=== PATIENT | male | born 1950 | race Caucasian/White ===

== ENCOUNTER 2018-11-01 18:30 | Emergency (ER) | payer MEDICARE, BC ==
[2018-11-01 19:20] LABS: CHLORIDE,CL 101 mmol/L (98-107); SODIUM,NA 138 mmol/L (136-145)
--- NOTE | 2018-11-01 19:31 | EDM.PDOC ---
ED HPI GENERAL MEDICAL PROBLEM - General Chief Complaint: Laceration Stated Complaint: Trauma, Facial laceration Time Seen by Provider: 11/01/18 18:45 Source of Information: Reports: Patient, Family - History of Present Illness INITIAL COMMENTS - FREE TEXT/NARRATIVE: Patient brought in by after getting kicked in the left eye area by a horse that he was trying to brand. Laceration near inner left eye, swollen eyelid. Unable to see well out of left eye. He denies other injuries. No nasal pain/jaw pain/neck pain. Able to open and close jaw. Denies chest/back/ abdominal/limb pain. No focal neuro weakness/numbness. ROS otherwise negative. - Related Data Allergies Allergy/AdvReac Type Severity Reaction Status Date / Time venom-honey bee Allergy Anaphylactic Verified 01/02/14 16:13 Shock Home Meds: Home Meds Ca Cmb No.1/Vit D3/B-6/FA/B12 [Vitamin D3 1,000 Unit] 2,000 units PO DAILY 01/16 [History] Cetirizine [ZyrTEC] 1 tab PO DAILY 01/16/14 [History] Clotrimazole/Betamethasone Dip [Lotrisone Cream] 1 applic TOP DAILY 01/16/14 [ History] Multivitamin with Minerals [Multiple Vitamin] 1 tab PO DAILY 01/16/14 [History] Omeprazole [priLOSEC OTC] 1 - 2 cap PO DAILY PRN 01/16/14 [History] Sildenafil [Viagra] 1 tab PO DAILY PRN 01/16/14 [History] Testosterone [Androgel] 50 mg TOP DAILY 01/16/14 [History] Triamcinolone Acetonide [Kenalog 0.1% Crm] 1 applic TOP BID PRN 01/16/14 [ History] Cranberry Conc/Ascorbic Acid [Cranberry 12,600 mg Softgel] 1 cap PO DAILY [History] Raspberry Ketone [Raspberry Ketones] 1 tab PO DAILY 01/17/14 [History] Venlafaxine HCl [Venlafaxine ER] 1 cap PO DAILY 01/17/14 [History] Past Medical History HEENT History: Reports: Allergic Rhinitis Gastrointestinal History: Reports: GERD Psychiatric History: Reports: Depression Social & Family History - Tobacco Use Smoking Status *Q: Never Smoker - Caffeine Use Caffeine Use: Reports: Coffee, Soda - Alcohol Use Alcohol Use History: Yes Alcohol Use in Last Twelve Months: No Alcohol Use Comment: Recovering alcoholic ED ROS GENERAL - Review of Systems Review Of Systems: See Below Constitutional: Reports: No Symptoms HEENT: Reports: Eye Pain (left), Vision Change (left). Denies: Ear Pain, Nosebleed, Nose Pain Respiratory: Reports: No Symptoms. Denies: Shortness of Breath, Pleuritic Chest Pain Cardiovascular: Reports: No Symptoms. Denies: Chest Pain GI/Abdominal: Reports: No Symptoms : Reports: No Symptoms Musculoskeletal: Reports: No Symptoms. Denies: Neck Pain, Shoulder Pain, Arm Pain, Back Pain, Hand Pain, Leg Pain, Foot Pain, Joint Pain, Joint Swelling Skin: Reports: Wound (near left eye) Neurological: Denies: Confusion, Dizziness, Headache, Paresthesia, Seizure, Syncope, Tingling, Tremors, Trouble Speaking, Difficulty Walking, Weakness, Change in Speech, Gait Disturbance Psychiatric: Reports: No Symptoms Hematologic/Lymphatic: Reports: No Symptoms ED EXAM, SKIN/RASH Exam: See Below Exam Limited By: No Limitations General Appearance: Alert, WD/WN, Mild Distress Eye Exam: Left Eye: Abnormal Pupil, Conjunctival Injection, Periorbital Changes , Proptosis Ears: Normal External Exam, Normal Canal Nose: Nasal Swelling (left side of nose). No: Nasal Tenderness, Nasal Drainage Throat/Mouth: Normal Lips, Normal Teeth, Normal Voice, No Airway Compromise Head: Facial Swelling (around left eye) Neck: Normal Inspection, Supple, Non-Tender, Full Range of Motion Respiratory/Chest: No Respiratory Distress, Lungs Clear, Normal Breath Sounds, No Accessory Muscle Use, Chest Non-Tender Cardiovascular: Regular Rate, Rhythm, No Edema, No Murmur GI/Abdominal: Soft, Non-Tender (Male) Exam: Deferred Rectal (Males) Exam: Deferred Back Exam: No: Muscle Spasm Extremities: Normal Inspection, Non-Tender, Normal Capillary Refill Neurological: Alert, Oriented, Normal Cognition, No Motor/Sensory Deficits Psychiatric: Normal Affect, Normal Mood Skin: Warm, Dry, Wound/Incision (inner corner of left eye has laceration) Course - Orders/Labs/Meds Orders: Active Orders 24 hr Category Date Time Status Head wo Cont [CT] Routine Exams 11/01/18 19:06 Taken Max Facial Sinus wo Cont [CT] Routine Exams 11/01/18 19:07 Taken Sodium Chloride 0.9% [Normal Saline] 1,000 ml Med 11/01/18 19:21 Ordered IV .BOLUS Medication Orders Sodium Chloride (Normal Saline) 1,000 mls @ 250 mls/hr IV .BOLUS ONE Stop: 11/01/18 23:20 Labs: Laboratory Tests 11/01/18 11/01/18 Range/Units 18:50 18:50 WBC 5.8 (4.0-10.2) K/uL RBC 4.58 (4.33-5.41) M/uL Hgb 14.6 (13.1-16.8) g/dL Hct 41.1 (39.0-49.0) % MCV 89.7 (84.0-98.0) fL MCH 31.9 (28.2-33.3) pg MCHC 35.5 (31.7-36.0) g/dL RDW 12.5 (11.2-14.1) % Plt Count 166 (150-350) K/uL Neut % (Auto) 57.5 (45.0-80.0) % Lymph % (Auto) 27.6 (10.0-50.0) % [place] % (Auto) 9.8 (2.0-14.0) % Eos % (Auto) 4.8 (0.0-5.0) % Baso % (Auto) 0.3 (0.0-2.0) % Neut # (Auto) 3.33 (1.40-7.00) K/uL Lymph # (Auto) 1.60 (0.50-3.50) K/uL [place] # (Auto) 0.57 (0.00-1.00) K/uL Eos # (Auto) 0.28 (0.00-0.50) K/uL Baso # (Auto) 0.02 (0.00-0.20) K/uL Sodium 138 (136-145) mmol/L Potassium 3.5 (3.5-5.1) mmol/L Chloride 101 (98-107) mmol/L Carbon Dioxide 24.7 (21.0-32.0) mmol/L BUN 20 H (7-18) mg/dL Creatinine 1.20 H (0.51-1.17) mg/dL Est Cr Clr Drug Dosing TNP Estimated GFR (MDRD) > 60 mL/min Glucose 109 H (74-106) mg/dL Calcium 8.7 (8.5-10.1) mg/dL Total Bilirubin 0.3 (0.2-1.0) mg/dL AST 29 (15-37) U/L ALT 59 (12-78) U/L Alkaline Phosphatase 58 (46-116) IU/L Total Protein 7.0 (6.4-8.2) g/dL Albumin 3.8 (3.4-5.0) g/dL Meds: Medications Generic Name Dose Route Start Last Admin Trade Name Freq PRN Reason Stop Dose Admin Sodium Chloride 1,000 mls @ 250 mls/hr 11/01/18 19:21 Normal Saline IV 11/01/18 23:20 .BOLUS ONE Discontinued Medications Generic Name Dose Route Start Last Admin Trade Name Freq PRN Reason Stop Dose Admin Morphine Sulfate Confirm 11/01/18 19:34 Morphine Administered 11/01/18 19:35 Dose 2 mg .ROUTE .STK-MED ONE Ondansetron HCl Confirm 11/01/18 19:34 Zofran Administered 11/01/18 19:35 Dose 4 mg .ROUTE .STK-MED ONE - Radiology Interpretation Free Text/Narrative:: CT of facial bones/head revealed periorbital and intraorbital edema. Minimally displaced fractures of the left orbital floor and left lamina papyracea. Fracture extends superiorly into the left frontal sinus. - Re-Assessments/Exams Free Text/Narrative Re-Assessment/Exam: 11/01/18 20:35 No obvious laceration/disruption of left eye globe identified in ER. Call placed to [facility] in [place]. Discussed the patient's injuries with on-call ER MD , , and on-call neurology specialist . Transfer to their facility was arranged for further evaluation and treatment of patient's eye and juan a-orbital injuries. IV NS bolus ordered. Baseline CBC/Chem obtained. MS given for pain, Zofran to help prevent nausea. Transported by EMS to [facility]. Departure - Departure Time of Disposition: 19:19 Disposition: DC/Tfer to Acute Hospital 02 Condition: Fair Clinical Impression: Struck by horse, initial encounter Facial trauma Qualifiers: Encounter type: initial encounter Qualified Code(s): S09.93XA - Unspecified injury of face, initial encounter Blunt trauma, left eye Qualifiers: Encounter type: initial encounter Qualified Code(s): S05.8X2A - Other injuries of left eye and orbit, initial encounter Fracture of left orbital floor Qualifiers: Encounter type: initial encounter Fracture type: open Qualified Code(s): S02.32XB - Fracture of orbital floor, left side, initial encounter for open fracture Lamina papyracea fracture Qualifiers: Encounter type: initial encounter Fracture type: open Qualified Code(s): S02.19XB - Other fracture of base of skull, initial encounter for open fracture - Discharge Information *PRESCRIPTION DRUG MONITORING PROGRAM REVIEWED*: Not Applicable *COPY OF PRESCRIPTION DRUG MONITORING REPORT IN PATIENT [facility]: Not Applicable Forms: ED Department Discharge - My Orders Last 24 Hours: My Active Orders 11/01/18 19:06 Head wo Cont [CT] Routine 11/01/18 19:07 Max Facial Sinus wo Cont [CT] Routine 11/01/18 19:21 Sodium Chloride 0.9% [Normal Saline] 1,000 ml IV .BOLUS - Assessment/Plan Last 24 Hours: My Active Orders 11/01/18 19:06 Head wo Cont [CT] Routine 11/01/18 19:07 Max Facial Sinus wo Cont [CT] Routine 11/01/18 19:21 Sodium Chloride 0.9% [Normal Saline] 1,000 ml IV .BOLUS
[2018-11-01] MEDS ORDERED: Morphine 2 MG/ML Syringe ONE (19:35)
[2018-11-01] MEDS ORDERED: Ondansetron 4 MG/2 ML SDV ONE (19:35)
[2018-11-01] MEDS: Morphine 2 MG/ML Syringe ONE (23:08)
[2018-11-01] MEDS: Ondansetron 4 MG/2 ML SDV ONE (23:09)
[2018-11-01] MEDS: Sodium Chloride 0.9% 1,000 ML IV ONE (23:09)
== END 2018-11-01 19:45 ==
LOC: LL.ED 18:30
DX: S02.19XB Other fracture of base of skull, initial encounter for open fracture (principal); S02.32XB Fracture of orbital floor, left side, initial encounter for open fracture; K21.9 Gastro-esophageal reflux disease without esophagitis; F32.9 Major depressive disorder, single episode, unspecified; W55.12XA Struck by horse, initial encounter; Z79.899 Other long term (current) drug therapy
CPT/HCPCS: 36415; 70450; 70486; 80053; 85025; 96374; 96375; 99285-25; G0390; J2270; J2405

== ENCOUNTER 2021-07-02 12:04 | Day surgery (SDC) | payer MEDICARE, OTHER ==
[~2021-07-02 12:04] MED LIST: Midazolam 1 MG/ML 2 ML SDV ONE; Propofol 200 MG/20 ML SDV ONE
[2021-07-02] MEDS ORDERED: Lactated Ringers 1,000 ML IV SCH (12:15)
[2021-07-02] MEDS ORDERED: Sodium Chloride 0.9% 10 ML Syringe FLUSH PRN (12:15)
[2021-07-02] MEDS ORDERED: Midazolam 1 MG/ML 2 ML SDV ONE (13:33)
[2021-07-02] MEDS ORDERED: Glycopyrrolate 0.2 MG/ML SDV ONE (13:33)
[2021-07-02] MEDS ORDERED: Lidocaine 2% 5 ML SDV ONE (13:33)
[2021-07-02] MEDS ORDERED: Propofol 200 MG/20 ML SDV ONE (13:33)
== END 2021-07-02 15:10 | disposition home or self-care (01) ==
LOC: LL.SDS 12:04
PROVIDERS: ATTEND Surgery
DX: K29.50 Unspecified chronic gastritis without bleeding (principal); K21.00 Gastro-esophageal reflux disease with esophagitis, without bleeding; K22.10 Ulcer of esophagus without bleeding; K31.89 Other diseases of stomach and duodenum; K44.9 Diaphragmatic hernia without obstruction or gangrene; K31.5 Obstruction of duodenum; Z79.899 Other long term (current) drug therapy; Z91.030 Bee allergy status; Z98.890 Other specified postprocedural states; Z87.891 Personal history of nicotine dependence
CPT/HCPCS: 00731; 88305; 88342; J2250; J2704; J3490; J7120

== ENCOUNTER 2024-11-14 08:47 | Emergency (ER) | payer MEDICARE, OTHER ==
[2024-11-14] MEDS: methylPREDNISolone Sodium Succinate 125 MG/2 ML SDV IVPUSH ONE (09:00)
[2024-11-14] MEDS: Sodium Chloride 0.9% 10 ML Syringe FLUSH PRN (09:00)
[2024-11-14] MEDS: methylPREDNISolone Sodium Succinate 125 MG/2 ML SDV ONE (10:00)
== END 2024-11-14 10:00 | disposition home or self-care (01) ==
LOC: LL.ED 08:47
DX: T63.441A Toxic effect of venom of bees, accidental (unintentional), initial encounter (principal); I10 Essential (primary) hypertension; K21.9 Gastro-esophageal reflux disease without esophagitis; E66.9 Obesity, unspecified; Z79.899 Other long term (current) drug therapy; Z91.030 Bee allergy status; Z68.31 Body mass index [BMI] 31.0-31.9, adult
CPT/HCPCS: 96374; 99283-25; J2919